=== PATIENT | male | born 1950 | race Caucasian/White ===

== ENCOUNTER → 2016-12-26 | Outpatient (CLI) | payer MEDICARE ==
[~2016-12-26] MED LIST: AMLODIPINE BESYL5 MG PO; ASPIRIN81 M2 PO; LIPITOR40 MG PO; MULTIPLE VITAMI1 T11 PO; ZOLPIDEM TARTRA10 M1 PO
--- NOTE | ~2016-12-26 | CT4 ---
[facility] A Service of [facility] RADIOLOGY TEXT RESULTS PATIENT: HARMONY GARCIA LOCATION: [facility] : 50 UNIT #: [id number] AGE: [address]: Lb Sharp MD SEX: M ORDER DR: [id number] [facility] [address] [place], [place] [address] [id number] O MR#: [id number] Acc #: [id number] NAME: HARMONY GARCIA : 1950 SEX: M STUDY DATE/TIME: 12/26/2016 9:23 UNIT: [facility] ROOM: STUDY DESCRIPTION: CT Abd and Pelv Wo Cont Attending Physician: Lb Sharp M.D. Referring Physician: Lb Sharp M.D. Ordering Physician: Lb Sharp M.D. Primary Care Physician: Ayleen Bogsg M.D. MEDICAL IMAGING REPORT This report is preliminary unless electronic signature is present EXAM CT of the abdomen and pelvis without contrast. INDICATIONS Six month history of low back and bilateral flank pain. Left kidney cancer history with partial nephrectomy. TECHNIQUE CT of the abdomen and pelvis was performed without contrast. Coronal and sagittal reformatted images were obtained. This CT exam was performed with one or more of the following radiation dose reduction techniques: automatic exposure control, adjustment of mA and/or kV according to patient size, and iterative reconstruction. COMPARISON 04/23/2016 FINDINGS There is stable atelectasis or scarring in the base of the right lower lobe. The liver is unremarkable. The gallbladder is unremarkable. The spleen is unremarkable. Postoperative changes of the left kidney and right kidney is unremarkable. No renal stone or hydronephrosis. The adrenal glands are unremarkable. Pancreas is unremarkable. PELVIS: Small fat-containing left inguinal hernia. Scattered diverticula on the colon. Normal appendix. There is some stable urinary bladder wall thickening which is nonspecific. The bone windows show degenerative changes of the lower lumbar spine with stable anterolisthesis of L5 on S1 with vacuum disc phenomenon at L5-S1. There is also stable prominent Schmorl nodes at the lower endplate of L2. IMPRESSION [facility] Service of [facility] RADIOLOGY TEXT RESULTS PATIENT: HARMONY GARCIA LOCATION: [facility] : 50 UNIT #: [id number] AGE: [address]: Lb Sharp MD SEX: M ORDER DR: 1. Postoperative changes of left kidney. 2. No evidence of renal stone. 3. Stable nonspecific urinary bladder wall thickening. 4. Degenerative changes of the lower lumbar spine. Dictated by... Luciano Fitzpatrick M.D. THIS IS AN ELECTRONICALLY VERIFIED REPORT Luciano Fitzpatrick M.D. at 12/27/2016 10:00 AM SANCHO/skylar TD: 12/26/2016 20:04 JOB #: [id number] MEDICAL IMAGING REPORT Page 1 of 1 COPY
== END | disposition home or self-care (01) ==
LOC: CCAT 08:56
DX: M54.5 Low back pain (principal); N40.0 Benign prostatic hyperplasia without lower urinary tract symptoms; M47.896 Other spondylosis, lumbar region; N32.89 Other specified disorders of bladder; Z85.528 Personal history of other malignant neoplasm of kidney; Z90.5 Acquired absence of kidney
CPT/HCPCS: 74176